=== PATIENT | male | born 1960 | race Caucasian/White ===

== ENCOUNTER 2019-03-03 09:18 | Emergency (ER) | payer BC ==
[2019-03-03 09:29] VITALS: BP 151/81; PULSE 61; TEMP 98.6; BMI 27.7
[2019-03-03] MEDS ORDERED: KETOROLAC TROMETHAMINE 30 MG/1 ML VIAL IM ONE (09:43)
[2019-03-03] MEDS ORDERED: KETOROLAC TROMETHAMINE 30 MG/1 ML VIAL ONE (09:44)
--- NOTE | 2019-03-03 09:47 | PDOC ---
History of Present Illness - General Chief Complaint: Wound Stated Complaint: RT LEG PAIN Time Seen by Provider: 03/03/19 09:35 History Source: Patient Exam Limitations: Clinical Condition - History of Present Illness Initial Comments: 03/03/19 10:06 Patient with history of varicose veins presented with complaint of over 3 weeks history of redness and swelling to the medial aspect of right ankle of unknown etiology. Patient reports he feels 1 of the small veins broke and had bleeding now starting to have been worsening redness and swelling to area. Patient denies any trauma or injury to area. Patient reported try to make appointment with PCP yesterday by PCP was out of the office. Denies numbness or tingling sensation. Denies weakness in the leg. Denies history of diabetes or or any other symptoms. Timing/Duration: reports: other (3 weeks) Severity: Yes: moderate Location: reports: extremities Associated Symptoms: reports: change in skin texture, edema (left ankle swelling ). denies: tingling Past History - Past Medical History Allergies/Adverse Reactions: Allergies Allergy/AdvReac Type Severity Reaction Status Date / Time No Known Allergies Allergy Verified 03/03/19 09:29 Home Medications: Ambulatory Orders Naproxen 500 mg PO BID PRN #20 tablet 03/03/19 Sulfamethoxazole/Trimethoprim [Bactrim Ds Tablet] 1 each PO BID 7 Days #14 tablet 03/03/19 COPD: No - Surgical History Cardiac Surgery: No Lung Surgery: No - Immunization History Immunization Up to Date: No - Psycho Social/Smoking Cessation Hx Smoking History: Never smoked Have you smoked in the past 12 months: No Information on smoking cessation initiated: No Hx Alcohol Use: No Drug/Substance Use Hx: No Review of Systems - Review of Systems Able to Perform ROS?: Yes Is the patient limited Welsh proficient: No Constitutional: No: Chills, Fever, Weakness HEENTM: No: Symptoms Reported Respiratory: No: Symptoms reported Cardiac (ROS): No: Symptoms Reported ABD/GI: No: Symptoms Reported Musculoskeletal: Yes: Symptoms Reported, See HPI, Joint Swelling (right medial foot swelling), Muscle Pain (left ankle pain) Integumentary: Yes: Symptoms Reported, See HPI, Change in Color (medial side of right ankle), Erythema (medial side of right ankle) Hematologic/Lymphatic: Yes: Symptoms Reported, Other (varicose vein) All Other Systems: Reviewed and Negative *Physical Exam - Vital Signs Last Vital Signs Temp Pulse Resp BP Pulse Ox 98.6 F 61 16 151/81 98 03/03/19 09:27 03/03/19 09:27 03/03/19 09:27 03/03/19 09:27 03/03/19 09:27 - Physical Exam Comments: 03/03/19 10:19 GENERAL: Well developed, well nourished. Awake and alert. No acute distress. PULMONARY: No evidence of respiratory distress. MUSCULOSKELETAL : mild tenderness over medial aspect of left ankle with localized area of 3 cm erythema to medial aspect of left ankle above medial malleolus. Multiple varicose vein to right lower leg. No bony deformities EXTREMITIES: Multiple varicose veins to right lower leg. Diffuse 3 cm area of erythema to medial aspect of right ankle above the medial malleolus. No cyanosis. No clubbing. No calf tenderness. SKIN: Warm and dry. Normal capillary refill. No open wound or discharge. Diffuse erythema to medial aspect of right ankle without excoriations. NEUROLOGICAL: Alert, awake, appropriate. No motor deficits in the lower extremities. Gait is normal without ataxia. PSYCHIATRIC: Cooperative. Good eye contact. Appropriate mood and affect. General Appearance: Yes: Nourished, Appropriately Dressed. No: Apparent Distress Medical Decision Making - Medical Decision Making 03/03/19 10:06 Patient with history of varicose veins presented with complaint of over 3 weeks history of redness and swelling to the medial aspect of right ankle of unknown etiology. Patient reports he feels 1 of the small veins broke and had bleeding now starting to have been worsening redness and swelling to area. Patient denies any trauma or injury to area. Patient reported try to make appointment with PCP yesterday by PCP was out of the office. Denies numbness or tingling sensation. Denies weakness in the leg. Denies history of diabetes or or any other symptoms. Exam significant for localized area 3 cm diffuse erythema to medial aspect of right lower leg above ankle. Multiple varicose veins to both lower extremities. Mild swelling over medial aspect of right ankle and posterior right ankle. Negative anterior posterior drawer test of right ankle. No tenderness to right foot or leg. No calf tenderness. Symptoms likely ruptured varicose vein causing cellulitis. Toradol 30 mg IM given for pain. Patient stable for discharge on Bactrim antibiotics for cellulitis with referral to vascular for management of varicose vein. Discharge - Discharge Information Problems reviewed: Yes Clinical Impression/Diagnosis: Cellulitis of right leg Varicose vein of leg Qualifiers: Varicose vein complication: pain Laterality: right Qualified Code(s): I83.811 - Varicose veins of right lower extremity with pain Condition: Stable Disposition: HOME - Admission No - Additional Discharge Information Prescriptions: Naproxen 500 mg PO BID PRN #20 tablet PRN Reason: pain Sulfamethoxazole/Trimethoprim [Bactrim Ds Tablet] 1 each PO BID 7 Days #14 tablet - Follow up/Referral Referrals: Joe Malhotra DO [Staff Physician] - - Patient Discharge Instructions Patient Printed Discharge Instructions: DI for Wound Infection Additional Instructions: Take prescribed medication for skin infection and pain. Follow-up with referred vascular specialist for management of varicose veins and wound follow-up - Post Discharge Activity
== END 2019-03-03 10:08 | disposition home or self-care (01) ==
LOC: JERFT 09:18
PROC: 3E0233Z Introduction of Anti-inflammatory into Muscle, Percutaneous Approach (ICD-10-PCS; principal; 2019-03-03)
DX: I83.811 Varicose veins of right lower extremity with pain (principal); L03.115 Cellulitis of right lower limb
CPT/HCPCS: 99281-25